=== PATIENT | female | born 1945 | race Caucasian/White ===

== ENCOUNTER 2018-12-30 09:52 | Emergency (ER) | payer MEDICARE, OTHER ==
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
--- NOTE | 2018-12-30 11:46 | CT ---
Head CT Technique: Multiple axial sections through the brain were obtained. Intravenous contrast was not utilized. Comparison: No prior intracranial imaging. Findings: Soft tissue hematoma seen within the frontal scalp and at the bridge of the nose. Ventricles along with basal cisterns and sulci over the convexities are within normal limits for the patient's age. No abnormal parenchymal densities are seen. No evidence of intracranial hemorrhage. No midline shift or mass effect is seen. Bone window settings were reviewed which show minimal mucosal thickening within the ethmoid and left maxillary sinus which is felt to be incidental. Minimally displaced nasal bone fracture is noted. Impression: 1. Soft tissue hematoma within the frontal scalp and at the bridge of the nose. Slightly displaced nasal bone fracture is seen. 2. No acute intracranial abnormality is identified. Diagnostic code #3
--- NOTE | 2018-12-30 11:46 | CT ---
CT facial bones Technique: Multiple axial sections through the facial bones were obtained. Reconstructed coronal and sagittal images were reviewed. Comparison: No prior facial bone exam. Findings: Soft tissue hematoma seen at the bridge of the nose and within the frontal scalp. Minimally displaced nasal bone fracture seen. Very slight mucosal thickening is seen within both maxillary sinuses and ethmoid sinuses believed to be pre-existing and chronic as well as incidental. No additional facial bone fracture is seen. Impression: 1. Soft tissue hematoma as noted above. Slightly displaced fracture within the nasal bone. 2. Minimal sinus findings which are believed to be incidental. 3. No additional facial bone abnormality is appreciated. Diagnostic code #3
== END 2018-12-30 13:24 | disposition home or self-care (01) ==
LOC: JD.ED 09:52
DX: R55 Syncope and collapse (principal); S02.2XXA Fracture of nasal bones, initial encounter for closed fracture; S00.03XA Contusion of scalp, initial encounter; E83.42 Hypomagnesemia; E11.9 Type 2 diabetes mellitus without complications; E78.00 Pure hypercholesterolemia, unspecified; Z79.899 Other long term (current) drug therapy; Z79.84 Long term (current) use of oral hypoglycemic drugs; W19.XXXA Unspecified fall, initial encounter
CPT/HCPCS: 36415; 70450; 70450-26; 70486; 70486-26; 80048; 82962; 83735; 93005; 93010; 99283; 99285-25

== ENCOUNTER 2021-12-22 09:42 | Emergency (ER) | payer MEDICARE, OTHER ==
[2021-12-22] MEDS ORDERED: Sodium Chloride 0.9% 10 ML Syringe FLUSH PRN (09:58)
[2021-12-22] MEDS ORDERED: Sodium Chloride 0.9% 1,000 ML IV SCH (10:00)
[2021-12-22] MEDS ORDERED: Ondansetron 4 MG/2 ML SDV IVPUSH ONE (10:06)
[2021-12-22] MEDS ORDERED: HYDROmorphone 0.5 MG/0.5 ML Syringe IVPUSH ONE (10:55)
== END 2021-12-22 15:15 | disposition home or self-care (01) ==
LOC: JD.ED 09:42
DX: S32.019A Unspecified fracture of first lumbar vertebra, initial encounter for closed fracture (principal); R55 Syncope and collapse; E11.649 Type 2 diabetes mellitus with hypoglycemia without coma; E78.00 Pure hypercholesterolemia, unspecified; I10 Essential (primary) hypertension; Z79.899 Other long term (current) drug therapy
CPT/HCPCS: 36415; 70450; 72131; 72192; 73630; 80053; 81001; 82947; 83690; 84484; 85025; 86140; 93005; 96374; 96375; 97161; 99285; J1170; J2405; J7030; 93010; 99284

== ENCOUNTER 2024-08-29 13:13 | Emergency (ER) | payer MEDICARE, OTHER | END 2024-08-29 15:25 | disposition home or self-care (01) | LOC: JD.ED 13:13 | DX: S63.501A Unspecified sprain of right wrist, initial encounter (principal); I10 Essential (primary) hypertension; E78.00 Pure hypercholesterolemia, unspecified; E11.9 Type 2 diabetes mellitus without complications; M19.90 Unspecified osteoarthritis, unspecified site; Z90.49 Acquired absence of other specified parts of digestive tract; Z79.4 Long term (current) use of insulin; Z79.82 Long term (current) use of aspirin; Z79.84 Long term (current) use of oral hypoglycemic drugs; Z79.899 Other long term (current) drug therapy; W01.0XXA Fall on same level from slipping, tripping and stumbling without subsequent striking against object, initial encounter; Y92.510 Bank as the place of occurrence of the external cause; Y93.01 Activity, walking, marching and hiking | CPT/HCPCS: 73110-26-RT; 73110-RT; 99284 ==

== ENCOUNTER 2025-03-22 13:55 | Emergency (ER) | payer MEDICARE, BC ==
[2025-03-22] MEDS: Lidocaine 1% 10 ML MDV INJECT ONE (15:45)
[2025-03-22] MEDS: Bacitracin Oint 15 GM Tube TOP ONE (16:38)
== END 2025-03-22 16:40 | disposition home or self-care (01) ==
LOC: JD.ED 13:55
DX: S60.450A Superficial foreign body of right index finger, initial encounter (principal); E78.00 Pure hypercholesterolemia, unspecified; I10 Essential (primary) hypertension; E11.9 Type 2 diabetes mellitus without complications; Z90.49 Acquired absence of other specified parts of digestive tract; Z79.84 Long term (current) use of oral hypoglycemic drugs; Z79.82 Long term (current) use of aspirin; Z79.899 Other long term (current) drug therapy; Z79.4 Long term (current) use of insulin; W27.3XXA Contact with needle (sewing), initial encounter; Y93.89 Activity, other specified
CPT/HCPCS: 73140; 99283; A9270; J2003; 10120